=== PATIENT | male | born 2005 | race Two or more races ===

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

== ENCOUNTER → 2023-03-23 | Emergency (ER) | payer OTHER ==
[~2023-03-23] VITALS: Ht 170.2 cm; Wt 59.0 kg
[~2023-03-23] MED LIST: NAPROXEN SODIU550 MG PO
== END | disposition home or self-care (01) ==
LOC: ER 15:14 → EMR PED 15:38 → ER 15:38
DX: Z48.02 Encounter for removal of sutures (principal)